=== PATIENT | male | born 1955 | race Caucasian/White ===

== ENCOUNTER → 2022-06-27 14:33 | Outpatient (BNVA) | payer MEDICARE, MEDICAID, SELFPAY | PROVIDERS: Family Provider Nurse Practitioner; PCP Nurse Practitioner; Visit Provider Nurse Practitioner Family | DX: R51.9 Headache, unspecified (principal); E55.9 Vitamin D deficiency, unspecified; Z12.5 Encounter for screening for malignant neoplasm of prostate; Z13.6 Encounter for screening for cardiovascular disorders; M16.0 Bilateral primary osteoarthritis of hip; M25.551 Pain in right hip; M25.552 Pain in left hip; M54.50 Low back pain, unspecified | CPT/HCPCS: 73523; 80053; 80061; 82306; 82607; 83735; 84439; 84443; 85025; G0103 ==

== ENCOUNTER → 2022-08-02 14:44 | Outpatient (BNVA) | payer MEDICARE, MEDICAID, SELFPAY | PROVIDERS: Family Provider Nurse Practitioner; PCP Nurse Practitioner; Visit Provider Orthopaedic Surgery | DX: M25.511 Pain in right shoulder (principal) | CPT/HCPCS: 73030; 99203 ==

== ENCOUNTER → 2022-09-15 17:17 | Outpatient (BNVA) | payer MEDICARE, MEDICAID, SELFPAY | PROVIDERS: Family Provider Nurse Practitioner; PCP Nurse Practitioner; Visit Provider Nurse Practitioner Family | DX: R06.02 Shortness of breath (principal) | CPT/HCPCS: 71046 ==

== ENCOUNTER 2023-01-27 09:32 | Outpatient (CLI) | payer MEDICARE, MEDICAID, SELFPAY ==
--- NOTE | 2023-01-27 11:00 | MR_ITS ---
WS: [id number] MRI BRAIN WITHOUT CONTRAST HISTORY: G43.909 - Migraine, unspecified, not intractable COMPARISON: None available. TECHNIQUE: Diffusion imaging, multiplanar T1, T2 and FLAIR imaging obtained. Patient declined IV contrast. No evidence for acute infarct or hemorrhage. Sánchez-white matter differentiation is normal. There is mild volume atrophy which is symmetric. No prior infarct. Ventricles and extra-axial spaces are normal. No inferior displacement of cerebellar tonsils. The sella turcica and pituitary gland are unremarkabl e. Dural venous sinuses and [place] demonstrate no abnormality on this unenhanced studies. Paranasal sinuses: Complete heterogeneous opacification RIGHT sphenoid sinus. Moderate mucoperiosteal thickening and opacification involving the RIGHT maxillary, RIGHT ethmoid and frontal sinuses. No ai r-fluid levels. Mastoid air cells: Normal. Calvarium and scalp: Intact. MR/MR head wo con* [id number] IMPRESSION: 1. No acute infarct or hemorrhage. 2. Mild atrophy with no significant small vessel ischemic disease. 3. Significant sinus disease, most prevalent within the RIGHT sphenoid sinus.
== END 2023-01-27 09:33 | disposition home or self-care (01) ==
LOC: RAD 09:35
PROVIDERS: PCP Nurse Practitioner; Visit Provider Nurse Practitioner Family
DX: G43.909 Migraine, unspecified, not intractable, without status migrainosus (principal); G31.9 Degenerative disease of nervous system, unspecified
CPT/HCPCS: 70551; 70553

== ENCOUNTER → 2023-05-24 16:11 | Outpatient (BNVA) | payer MEDICARE, MEDICAID, SELFPAY | PROVIDERS: PCP Family Medicine; Visit Provider Nurse Practitioner Family | DX: R39.9 Unspecified symptoms and signs involving the genitourinary system (principal); N40.0 Benign prostatic hyperplasia without lower urinary tract symptoms | CPT/HCPCS: 80053; 81000; 84153; 84443; 85025 ==

== ENCOUNTER 2023-06-01 13:55 | Emergency (ER) | payer MEDICARE, MEDICAID, SELFPAY ==
[2023-06-01 14:02] VITALS: BP 152/100; PULSE 121; RESP 14; TEMP 36.9; O2SAT 96
--- NOTE | 2023-06-01 14:22 | W.ED.MALEGU ---
HPI - Male Genitourinary General: Chief complaint: Urogenital-Male Stated complaint: unable to pee Time Seen by Provider: 06/01/23 14:01 [facility] ED PFSH: Medical History Low back pain Surgical History No history of previous surgery Family History Mother Diabetes Cancer female organs Grandfather Diabetes Brother Diabetes Hyperlipidemia Heart attack Social History Smoking and tobacco status: never smoked Second hand smoke exposure: Yes Alcohol intake: current Alcohol intake frequency: holidays/special occasions only Alcohol type: beer Substance/Drug Use: never Household members: spouse and children Marital status: service: No Current occupational status: retired Current gender identity: Male Special radha needs: No Agree to transfusion: Yes Course Vital Signs: Vital signs: Vital Signs Temperature 98.4 F 06/01/23 14:02 Pulse Rate 121 H 06/01/23 14:02 Respiratory Rate 14 06/01/23 14:02 Blood Pressure 152/100 06/01/23 14:02 Pulse Oximetry 96 06/01/23 14:02 Oxygen Delivery Me thod Room Air 06/01/23 14:02 Discharge Plan Discharge Condition: Stable Prescriptions: No Action diclofenac sodium 75 mg tablet,delayed release (DR/EC) 75 mg PO BID PRN (Reason: pain) Qty: 60 2RF Nurtec ODT 75 mg tablet,disintegrating 75 mg PO ONCE Qty: 10 2RF albuterol sulfate [ProAir HFA] 90 mcg/actuation HFA aerosol inhaler 2 puff inhalation Q6H PRN (Reason: shortness of breath or wheezing) Qty: 8.5 2RF cyclobenzaprine 10 mg tablet 10 mg PO TID PRN (Reason: muscle spasm) Qty: 90 2RF finasteride 5 mg tablet 5 mg PO DAILY Qty: 30 2RF tamsulosin 0.4 mg capsule 0.4 mg PO DAILY Qty: 30 2RF cetirizine [Zyrtec] 10 mg tablet 10 mg PO DAILY Qty: 90 1RF mometasone 50 mcg/actuation spray,non-aerosol 2 spray intranasal DAILY PRN (Reason: nasal congestion) Qty: 17 5RF Rx Instructions: administer into each nostril (DME) straight cath See Rx Instructions .Route .MEDSUPPLY Qty: 100 3RF Rx Instructions: As directed Referrals: Rosalinda Richards FNP [Primary Care Provider] - Coding Level of Care Code ED Compliance And Control Analyst for Ronnell Salas
[2023-06-01 14:54] LABS: Basophils % 0.5 %; Eosinophils # 0.2 10^3/uL (0.0-0.8); Eosinophils % 3.7 %; Hematocrit 48.2 % (42.0-52.0); Hemoglobin 16.5 g/dL (11.7-16.6); Lymphocytes # 1.8 10^3/uL (0.8-4.8); Lymphocytes % 30.6 %; Mean Corpuscular HGB Conc 34.2 g/dL (30.0-36.0); Mean Corpuscular Hemoglobin 32.8 pg (28.0-34.0); Mean Corpuscular Volume 95.8 fl (80-94); Mean Platelet Volume 9.1 fL (7.4-10.4); Monocytes # 0.4 10^3/uL (0.2-0.9); Monocytes % 6.8 %; Neutrophils # 3.44 10^3/uL (1.8-7.7); Neutrophils % 58.1 %; Nucleated Red Blood Cells % 0 %; Platelet Count 194 10^3/cmm (130-400); Red Blood Count 5.03 10^6/uL (4.1-5.3); Red Cell Distribution Width 12.3 % (12.1-15.1); White Blood Count 5.9 10^3/uL (4.0-10.0)
[2023-06-01 15:23] LABS: Albumin Level 4.6 g/dL (3.5-5.2); Alkaline Phosphatase 72 U/L (40-130); Anion Gap 16.4 (5-19); Aspartate Amino Transferase 26 U/L (0-40); Blood Urea Nitrogen 8 mg/dL (8-23); Calcium 9.6 mg/dL (8.5-10.5); Carbon Dioxide 24 mmol/L (22-29); Chloride 105 mmol/L (98-107); Glomerular Filtration Rate 74.3 mL/min (90-130); Glucose 102 mg/dL (65-115); Osmolality Calculated 291 mOsm/kg (285-295); Potassium 4.4 mmol/L (3.5-5.1); Sodium 141 mmol/L (136-145); Total Bilirubin 0.5 mg/dL (0.15-1.2); Total Protein 7.6 g/dL (6.6-8.7)
--- NOTE | 2023-06-01 15:30 | ED_ITS ---
HPI - Male Genitourinary General: Chief complaint: Urogenital-Male Stated complaint: unable to pee Time Seen by Provider: 06/01/23 14:01 Source: patient Mode of arrival: ambulatory History of Present Illness: 68-year-old male presents emergency room with complaints of difficulty with urination. He is had difficulty urinating the last couple of days. Has had this problem in the past and had to self cath he has been using catheters he was given previously by a urologist who is now retired. He denies any dysuria urgency or frequency denies any hematuria. He is on tamsulosin alone. Onset (ago): day(s) Associated symptoms: Deny discharge, dysuria, fevers/chills, hematuria, nausea, rash, swelling, urinary incontinence, urinary retention, mass or vomiting Review of Systems Const: Denies: fever(s) or chills GI: Denies: abdominal pain, nausea or vomiting : Reports: difficulty urinating and difficulty starting urination; Denies: dysuria, urinary frequency, urinary urgency, urinary incontinence or hematuria PFS ED PFSH: Medical History Low back pain Surgical History No history of previous surgery Family History Mother Diabetes Cancer female organs Grandfather Diabetes Brother Diabetes Hyperlipidemia Heart attack Social History Smoking and tobacco status: never smoked Second hand smoke exposure: Yes Alcohol intake: current Alcohol intake frequency: holidays/special occasions only Alcohol type: beer Substance/Drug Use: never Household members: spouse and children Marital status: service: No Current occupational status: retired Current gender identity: Male Special radha needs: No Agree to transfusion: Yes Physical Exam Const: GENERAL APPEARANCE: cooperative and comfortable ORIENTATION/CONSCIOUSNESS: Yes awake, Yes oriented to person, Yes oriented to place and Yes oriented to time HENMT: COMMON NORMALS: normocephalic, atraumatic and hearing grossly normal bilaterally HEAD & SCALP: normocephalic and atraumatic Resp: COMMON NORMALS: normal respiratory effort, No retractions, No use of a ccessory muscles and clear to auscultation bilaterally AUSCULTATION: clear to auscultation bilaterally Cardio: COMMON NORMALS: regular rate, regular rhythm and No murmurs present (Cardio) RATE: regular rate RHYTHM: regular rhythm GI: COMMON NORMALS: Soft to palpation and No hepatosplenomegaly present AUSCULTATION: Yes normoactive bowel sounds PALPATION: Yes Soft to palpation, No Tenderness to palpation present (GI), No Guarding due to palpation present (GI) and Yes No hepatosplenomegaly present Extremity: COMMON NORMALS: normal to inspection, capillary refill normal, no clubbing, cyanosis or edema, no calf tenderness and no pedal edema Neuro: SENSORIUM/ORIENTATION: Yes oriented to person, Yes oriented to place and Yes oriented to time Skin: COMMON NORMALS: no rashes or lesions noted GENERAL SKIN EXAM: no rashes or lesions noted Course Vital Signs: Vital signs: Vital Signs Temperature 98.4 F 06/01/23 14:02 Pulse Rate 121 H 06/01/23 14:02 Respiratory Rate 14 06/01/23 14:02 Blood Pressure 152/100 06/01/23 14:02 Pulse Oximetry 96 06/01/23 14:02 Oxygen Delivery Me thod Room Air 06/01/23 14:02 MDM - Male Medical Decision Making Cystitis on UA. Continue to self cath. Follow-up with urology as soon as he is able. Medical Records I reviewed the patient's medical records. Lab Data I reviewed the patient's lab results. 06/01/23 14:48 06/01/23 14:48 Laboratory Results WBC 5.9 10^3/uL (4.0-10.0) 06/01/23 14:48 RBC 5.03 10^6/uL (4.1-5.3) 06/01/23 14:48 Hgb 16.5 g/dL (11.7-16.6) 06/01/23 14:48 Hct 48.2 % (42.0-52.0) 06/01/23 14:48 MCV 95.8 fl (80-94) H 06/01/23 14:48 MCH 32.8 pg (28.0-34.0) 06/01/23 14:48 MCHC 34.2 g/dL (30.0-36.0) 06/01/23 14:48 RDW 12.3 % (12.1-15.1) 06/01/23 14:48 Plt Count 194 10^3/cmm (130-400) 06/01/23 14:48 MPV 9.1 fL (7.4-10.4) 06/01/23 14:48 Neut % (Auto) 58.1 % 06/01/23 14:48 Lymph % (Auto) 30.6 % 06/01/23 14:48 [place] % (Auto) 6.8 % 06/01/23 14:48 Eos % (Auto) 3.7 % 06/01/23 14:48 Baso % (Auto) 0.5 % 06/01/23 14:48 Neut # (Auto) 3.44 10^3/uL (1.8-7.7) 06/01/23 14:48 Lymph # (Auto) 1.8 10^3/uL (0.8-4.8) 06/01/23 14:48 [place] # (Auto) 0.4 10^3/uL (0.2-0.9) 06/01/23 14:48 Eos # (Auto) 0.2 10^3/uL (0.0-0.8) 06/01/23 14:48 Baso # (Auto) 0.0 10^3/uL (0.0-0.1) 06/01/23 14:48 Nucleated RBC % (auto) 0 % 06/01/23 14:48 Nucleated RBCs # 0.0 /100WBC 06/01/23 14:48 Sodium 141 mmol/L (136-145) 06/01/23 14:48 Potassium 4.4 mmol/L (3.5-5.1) 06/01/23 14:48 Chloride 105 mmol/L (98-107) 06/01/23 14:48 Carbon Dioxide 24 mmol/L (22-29) 06/01/23 14:48 Anion Gap 16.4 (5-19) 06/01/23 14:48 BUN 8 mg/dL (8-23) 06/01/23 14:48 Creatinine 1.0 mg/dL (0.7-1.2) 06/01/23 14:48 GFR Calculation 74.3 mL/min (90-130) L 06/01/23 14:48 Glucose 102 mg/dL (65-115) 06/01/23 14:48 Calculated Osmolality 291 mOsm/kg (285-295) 06/01/23 14:48 Calcium 9.6 mg/dL (8.5-10.5) 06/01/23 14:48 Total Bilirubin 0.5 mg/dL (0.15-1.2) 06/01/23 14:48 AST 26 U/L (0-40) 06/01/23 14:48 ALT 43 U/L (0-41) H 06/01/23 14:48 Alkaline Phosphatase 72 U/L (40-130) 06/01/23 14:48 Total Protein 7.6 g/dL (6.6-8.7) 06/01/23 14:48 Albumin 4.6 g/dL (3.5-5.2) 06/01/23 14:48 Globulin 3.0 g/dL (1.3-4.6) 06/01/23 14:48 Urine Color Yellow (Yellow) 06/01/23 16:50 Urine Appearance Clear (CLEAR) 06/01/23 16:50 Urine pH 5 (5-7) 06/01/23 16:50 Ur Specific [place] 1.010 (1.005-1.030) 06/01/23 16:50 Urine Protein Neg (Negative) 06/01/23 16:50 Urine Glucose (UA) Norm (Normal) 06/01/23 16:50 Urine Ketones Negative (Negative) 06/01/23 16:50 Urine Blood Neg (Negative) 06/01/23 16:50 Urine Nitrate Negative (Negative) 06/01/23 16:50 Urine Bilirubin 1+ (Negative) H 06/01/23 16:50 Urine Urobilinogen Norm mg/dL (Negative) 06/01/23 16:50 Ur Leukocyte Esterase 2+ (Negative) H 06/01/23 16:50 Urine RBC 0-4 /hpf (0-2) H 06/01/23 16:50 Urine WBC 15-25 /hpf (0-5) H 06/01/23 16:50 Ur Squamous Epith Cells 0-4 /hpf (0-5) H 06/01/23 16:50 Amorphous Sediment Not Reportable 06/01/23 16:50 Urine Bacteria None /hpf (NONE) 06/01/23 16:50 Discharge Plan Discharge Patient Disposition: Home Clinical Impression: Urinary retention, BPH (benign prostatic hyperplasia), Cystitis Condition: Stable Prescriptions: No Action diclofenac sodium 75 mg tablet,delayed release (DR/EC) 75 mg PO BID PRN (Reason: pain) Qty: 60 2RF Nurtec ODT 75 mg tablet,disintegrating 75 mg PO ONCE Qty: 10 2RF albuterol sulfate [ProAir HFA] 90 mcg/actuation HFA aerosol inhaler 2 puff inhalation Q6H PRN (Reason: shortness of breath or wheezing) Qty: 8.5 2RF cyclobenzaprine 10 mg tablet 10 mg PO TID PRN (Reason: muscle spasm) Qty: 90 2RF finasteride 5 mg tablet 5 mg PO DAILY Qty: 30 2RF tamsulosin 0.4 mg capsule 0.4 mg PO DAILY Qty: 30 2RF cetirizine [Zyrtec] 10 mg tablet 10 mg PO DAILY Qty: 90 1RF mometasone 50 mcg/actuation spray,non-aerosol 2 spray intranasal DAILY PRN (Reason: nasal congestion) Qty: 17 5RF Rx Instructions: administer into each nostril (DME) straight cath See Rx Instructions .Route .MEDSUPPLY Qty: 100 3RF Rx Instructions: As directed Discharge Orders: Discharge ED (Routine); Ordered 06/01/23 Ordered By: Johnny Lombardo Referrals: Rosalinda Richards, ACCOUNT STRATEGIST [Primary Care Provider] - Discharge Diet: Usual diet Discharge Activity: Resume usual activity Patient Instructions: Opioid Safety, Pain Management Activity Restrictions/Additional Instructions: You were seen today for complaints of difficulty with urination. You are retaining significant amount of urine of a mild bladder infection. Recommend continuing to self cath as you have in the past will start on oral antibiotics Bactrim 1 p.o. twice daily x10 days follow-up with urology as previously scheduled. Continue to take both your finasteride and tamsulosin alone. Increase your tamsulosin To 2 tablets at bedtime. Coding Level of Care Code ED [place] Clerk for Ronnell Salas
[2023-06-01 15:34] LABS: Alanine Aminotransferase 43 U/L (0-41)
[2023-06-01 17:08] LABS: Add Urine Microscopic? YES; Bilirubin Urine 1+ (Negative); Blood Urine Neg (Negative); Glucose Urine UA Norm (Normal); Ketones Urine Negative (Negative); Leukocyte Esterase Urine 2+ (Negative); Nitrate Urine Negative (Negative); Protein Urine Neg (Negative); Urine Appearance Clear (CLEAR); Urine Color Yellow (Yellow); Urobilinogen Urine Norm (Negative); pH Urine 5 (5-7)
[2023-06-01 17:10] LABS: RBC Urine 0-4 /hpf (0-2); Squamous Epithelial Cell Urine 0-4 /hpf (0-5)
[2023-06-01 17:11] LABS: Add Urine Culture? Yes; WBC Urine 15-25 /hpf (0-5)
--- NOTE | 2023-06-12 11:18 | DCPLANNER ---
optical store manager had message to schedule a follow up appointment for patient with urology. optical store manager called phone number [phone] to speak with patient to confirm where patient would like referral sent. optical store manager unable to speak with patient at this time, a voicemail was left for patient to return briefcase sewer phone call.
== END 2023-06-01 18:01 | disposition home or self-care (01) ==
PROVIDERS: Physician Assistant; Emergency Provider Family Medicine; PCP Nurse Practitioner Family
DX: N30.90 Cystitis, unspecified without hematuria (principal); N40.1 Benign prostatic hyperplasia with lower urinary tract symptoms; R33.8 Other retention of urine; Z77.22 Contact with and (suspected) exposure to environmental tobacco smoke (acute) (chronic)
CPT/HCPCS: 36415; 80053; 81001; 85025; 87086; 99283